=== PATIENT | male | born 1950 | race Caucasian/White ===

== ENCOUNTER 2020-01-04 11:48 | Outpatient (CLI) | payer MEDICARE, OTHER ==
[2020-01-04 12:08] LABS: ABG BASE EXCESS -0.8 mmol/L (-2.0-3.0); ABG OXYGEN SATURATION 96 % (94-98); ABG PCO2 36 mmHg (34-45); ABG PH 7.43 (7.35-7.45); ABG PO2 79 mmHg (80-100); ABG TCO2 24.1 MMOL/L (21.0-29.0); ALLEN TEST POSITIVE
== END 2020-01-04 11:49 | disposition home or self-care (01) ==
LOC: LAB 11:48
PROVIDERS: ATTEND Internal Medicine
DX: R09.02 Hypoxemia (principal); R06.00 Dyspnea, unspecified; R53.83 Other fatigue
CPT/HCPCS: 36600; 82803

== ENCOUNTER 2020-01-04 12:13 | Outpatient (CLI) | payer MEDICARE, OTHER ==
--- NOTE | 2020-01-05 08:02 | XRAY Report ---
Reason: HYPOXIA Procedure Date: 01/04/2020 Accession Number: [id number] / [id number] Procedure: XR - Chest 2 View X-Ray CPT Code: 94400 Final Report FULL RESULT: PROCEDURE: Chest 2 View X-Ray INDICATIONS: HYPOXIA TECHNIQUE: 2 view(s) of the chest. COMPARISON: None. FINDINGS: Surgical changes and devices: None. Lungs and pleura: No pleural effusions or pneumothorax. Lungs are clear. Mediastinum: Mediastinal contours are normal. Heart size is mildly prominent. Bones and chest wall: No suspicious bony abnormalities. Soft tissues appear unremarkable. IMPRESSION: No acute pulmonary process. Reviewed by: Nolvia Hale MD on 01/05/2020 8:01 AM PDT Approved by: Nolvia Hale MD on 01/05/2020 8:01 AM PDT Station ID: [id number]
== END 2020-01-04 12:14 | disposition home or self-care (01) ==
LOC: DI 12:13
PROVIDERS: ATTEND Internal Medicine
DX: R09.02 Hypoxemia (principal); R06.00 Dyspnea, unspecified; R53.83 Other fatigue
CPT/HCPCS: 36600; 71046; 82803